=== PATIENT | female | born 1960 | race Caucasian/White ===

== ENCOUNTER → 2017-01-21 | Emergency (ER) | payer BC ==
[~2017-01-21] VITALS: Ht 162.6 cm; Wt 66.1 kg
[~2017-01-21] MED LIST: ALORA1 EAC4 TP; SYNTHROID112 MCG PO; WELLBUTRIN SR150 MG PO
[2017-01-21 14:44] LABS: HEMATOCRIT 40.2 % (36.0-46.0); MCH 26.9 PG (29.0-34.0); MCHC 32.1 G/DL (30.0-36.0); MCV 83.8 FL (83-99); MEAN PLAT.VOLUME 9.1 uM^3 (9.5-12.4); PLATELET COUNT 255 K/uL (156-360); RBC DIS.WIDTH-CV 12.4 % (11.8-14.6); RBC DIS.WIDTH-SD 37.7 % (39-53); WHITE BLOOD COUNT 7.7 K/uL (4.1-10.2)
[2017-01-21 14:54] LABS: CHLORIDE 105 mEq/L (99-109); SODIUM 140 mEq/L (136-147)
[2017-01-21 14:56] LABS: GLUCOSE 93 mg/dL (70-99)
[2017-01-21 14:57] LABS: ANION GAP 10 MEQ/L (2-14)
[2017-01-21 15:00] LABS: GFR ESTIMATE (CALCULATED) > 59 mL/min/; UREA NITROGEN (BUN) 12 mg/dL (9-23)
[2017-01-21 15:06] LABS: TROP-I INTERPRETATION NEGATIVE; TROPONIN-I < 0.01 ng/mL (0.0-0.30)
[2017-01-21 17:00] LABS: TROP-I INTERPRETATION NEGATIVE; TROPONIN-I < 0.01 ng/mL (0.0-0.30)
[2017-01-21 17:04] LABS: D-DIMER ELISA < 150.00 ng/mLDDU (<230)
[2017-01-21 18:08] VITALS: BP 144/61
== END | disposition home or self-care (01) ==
LOC: RME 14:15 → EME 14:15
PROVIDERS: Nurse Practitioner Family
DX: R07.9 Chest pain, unspecified (principal); F41.9 Anxiety disorder, unspecified; Z82.49 Family history of ischemic heart disease and other diseases of the circulatory system
CPT/HCPCS: 71020; 80048; 84484; 85027; 85379; 93005; 99281; 99284